=== PATIENT | female | born 1985 | race Caucasian/White ===

== ENCOUNTER 2019-12-11 06:02 | Day surgery (SDC) | payer OTHER, SELFPAY ==
[~2019-12-11] VITALS: Ht 162.6 cm; Wt 83.9 kg
[2019-12-11] MEDS ORDERED: LIDOCAINE VISCOUS 2% 20 ML UDC ONE (07:29)
[2019-12-11] MEDS ORDERED: MIDAZOLAM 2 MG/2 ML VIAL ONE ×2 (07:29→07:30)
[2019-12-11] MEDS ORDERED: fentaNYL 0.05 MG/ML VIAL ONE (07:29)
[2019-12-11] MEDS ORDERED: fentaNYL 0.05 MG/ML VIAL IVP ONE (08:05)
[2019-12-11] MEDS ORDERED: MIDAZOLAM 2 MG/2 ML VIAL IVP ONE (08:05)
== END 2019-12-11 08:40 | disposition home or self-care (01) ==
LOC: MDS 06:02 → MMU 06:03 → MDS 08:40
PROVIDERS: ATTEND Internal Medicine Gastroenterology
DX: K21.9 Gastro-esophageal reflux disease without esophagitis (principal); R13.10 Dysphagia, unspecified; E66.8 Other obesity; Z79.899 Other long term (current) drug therapy
CPT/HCPCS: 36415; 43239; 81025; J2250; J3010; 88305; 88313; U0003-CS